=== PATIENT | male | born 1970 | race African-American/Black ===

== ENCOUNTER 2021-01-09 21:10 | Emergency (ER) | payer MEDICAID, OTHER ==
[~2021-01-09] VITALS: Ht 182.9 cm; Wt 100.0 kg
[2021-01-09 21:20] VITALS: BP 143/95
== END 2021-01-09 22:25 | disposition home or self-care (01) ==
LOC: ER 21:10
DX: T65.91XA Toxic effect of unspecified substance, accidental (unintentional), initial encounter (principal); Z59.0 Homelessness; Y92.89 Other specified places as the place of occurrence of the external cause; R03.0 Elevated blood-pressure reading, without diagnosis of hypertension; Z78.1 Physical restraint status
CPT/HCPCS: 93005; 99283

== ENCOUNTER 2021-11-01 12:47 | Emergency (ER) | payer MEDICAID ==
[~2021-11-01] VITALS: Ht 177.8 cm; Wt 80.0 kg
[2021-11-01 12:51] VITALS: BP 132/80
== END 2021-11-01 13:25 | disposition left against medical advice (07) ==
LOC: ER 12:47
DX: Z53.21 Procedure and treatment not carried out due to patient leaving prior to being seen by health care provider (principal)